=== PATIENT | female | born 1980 | race Two or more races ===

== ENCOUNTER 2023-02-12 19:48 | Emergency (ER) | payer MEDICAID, OTHER ==
[~2023-02-12] VITALS: Ht 170.2 cm; Wt 122.7 kg
[2023-02-12] MEDS ORDERED: ONDA-144 PO (21:35)
[2023-02-12] MEDS ORDERED: HYDR-4902 PO (21:35)
[2023-02-12] MEDS: HYDROcodone-ACET 5/325MG TAB PO ONE (21:48)
[2023-02-12] MEDS: ONDANSETRON ODT 4 MG TAB PO ONE (21:48)
[2023-02-12 21:53] VITALS: BP 150/90
== END 2023-02-12 22:04 | disposition home or self-care (01) ==
LOC: ER 19:48
DX: M25.562 Pain in left knee (principal); E11.9 Type 2 diabetes mellitus without complications; I10 Essential (primary) hypertension; Z90.49 Acquired absence of other specified parts of digestive tract
CPT/HCPCS: 73562; 99283; Q0162